=== PATIENT | female | born 1995 | race Native Hawaiian/Other Pacific Islander ===

== ENCOUNTER 2025-02-01 18:16 | Emergency (ER) | payer OTHER ==
[2025-02-01 18:27] VITALS: RESP 18; TEMP 97
[2025-02-01 18:53] LABS: Basophils # (A) 0.02 10*3/uL (0.00-0.10); Basophils % (A) 0.4 %; Eosinophils # (A) 0.09 10*3/uL (0.04-0.35); Eosinophils % (A) 1.6 %; HCT 34.9 % (37.2-46.3); HGB 12.1 g/dL (12.0-15.0); Lymphocytes # (A) 1.63 10*3/uL (0.90-5.00); Lymphocytes % (A) 29.5 %; MCH 29.9 pg (27.0-32.0); MCHC 34.7 g/dL (32.0-37.0); MCV 86.2 fL (80.0-97.0); Mean Platelet Volume 9.4 fL (9.5-12.2); Monocytes # (A) 0.37 10*3/uL (0.20-1.00); Monocytes % (A) 6.7 %; Neutrophils % (A) 61.6 %; Platelet Count 299 10*3/uL (140-440); RBC 4.05 10*6/uL (4.10-5.20); RDW 13.5 % (11.5-14.5); WBC 5.52 10*3/uL (4.50-10.00)
[2025-02-01 19:19] LABS: Partial Thromboplastin Time 26.7 sec (22.0-30.0); Prothrombin Time 11.2 sec (10.0-12.5)
[2025-02-01 19:23] LABS: HCG,Qualitative Serum Not Detected
[2025-02-01 19:26] LABS: ALT 17 U/L (4-34); AST 22 U/L (14-36); African American GFR (CKD) >90 (>60 ml/min/1.73 sqM); Albumin 4.6 g/dL (3.5-5.0); Alkaline Phosphatase 35 U/L (38-126); Amylase 71 U/L (30-110); Anion Gap 15 mmol/L; Blood Urea Nitrogen 10 mg/dL (7-17); Carbon Dioxide 17 mmol/L (22-30); Chloride 108 mmol/L (98-107); Glucose 128 mg/dL (74-99); Lipase 111 U/L (23-300); Non-African American GFR(CKD) >90 (>60 ml/min/1.73 sqM); Potassium 3.6 mmol/L (3.5-5.1); Sodium 140 mmol/L (137-145); Total Bilirubin 0.5 mg/dL (0.2-1.3); Total Protein 7.5 g/dL (6.3-8.2)
--- NOTE | 2025-02-01 20:58 | CT ---
INDICATION: Patient age:Female; 29 years old; Reason for study: abdominal pain; PHH. COMPARISON: None. TECHNIQUE: Standard CT of the abdomen and pelvis following the administration of IV contrast materi al. Contrast details can be found in the patient's chart documentation. Coronal and sagittal reformat s were performed. One or more CT dose reduction strategies were utilized during this examination. Tot al DLP administered was 719.4 mGycm. FINDINGS: LOWER CHEST: Unremarkable ABDOMEN LIVER: Unremarkable. GALLBLADDER AND BILE DUCTS: The gallbladder is surgically absent. PANCREAS: Unremarkable. SPLEEN: Unremarkable. ADRENAL GLANDS: Unremarkable. KIDNEYS AND URETERS: No evidence of hydronephrosis or renal calculus. The ureters are unremarkable. PELVIS URINARY BLADDER: Incompletely distended but grossly unremarkable. REPRODUCTIVE: There is poor delineation of the pelvic structures secondary to gaseous distention of t he rectum. There is slightly heterogenous appearance of the cervical area. There is poor characteriza tion of the adnexa. Trace fluid noted in the endometrium which may be physiologic. ABDOMEN & PELVIS STOMACH AND BOWEL: Stomach and duodenum are unremarkable. No evidence of bowel obstruction. Gaseous d istention of the rectum. PERITONEUM: No evidence of pneumoperitoneum or free fluid. VASCULATURE: No aneurysmal changes. MUSCULOSKELETAL: No acute osseous abnormalities LYMPH NODES: Unremarkable. SOFT TISSUE/ABDOMINAL WALL: Unremarkable IMPRESSION: 1. No acute intra-abdominal/pelvic process. 2. Limited evaluation of the pelvic structures and adnexa due to modality and also gaseous distention of the rectum. Correlate with patient's history and clinical evaluation. This region can be further and most optimally characterized with an MRI pelvis with IV contrast as clinically indicated. [facility], , 02/01/2025 8:55 PM
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
[2025-02-01 21:08] VITALS: BP 134/71; PULSE 74
== END 2025-02-01 21:23 | disposition home or self-care (01) ==
LOC: EC 18:16
DX: R10.13 Epigastric pain (principal); Z04.1 Encounter for examination and observation following transport accident; V89.2XXA Person injured in unspecified motor-vehicle accident, traffic, initial encounter
CPT/HCPCS: 36415; 80053; 82150; 83690; 85025; 85610; 85730; 84703; 74177; 99284; Q9967